=== PATIENT | male | born 1985 | race Caucasian/White ===

== ENCOUNTER 2017-07-04 15:33 | Emergency (ER) | payer MEDICAID ==
[~2017-07-04] VITALS: Ht 1686.6 cm; Wt 82.0 kg
[~2017-07-04 15:33] MED LIST: CHLO25CA10 PO; ESCI10TA PO; RISP2TAB97 PO
[2017-07-04 17:09] LABS: BASOPHILS % (AUTO) 0.2 % (0-1); EOSINOPHILS # (AUTO) 0.3 X10'3 (0-0.9); EOSINOPHILS % (AUTO) 3.8 % (0-6); HEMATOCRIT 46.3 % (42.0-52.0); HEMOGLOBIN 15.6 g/dl (14.0-17.9); LYMPHOCYTES # (AUTO) 2.8 X10'3 (1.1-4.8); LYMPHOCYTES % (AUTO) 34.2 % (21-51); MEAN CORPUSCULAR HEMOGLOBIN 28.8 PG (27.0-31.0); MEAN CORPUSCULAR HGB CONC 33.7 % (33.0-36.5); MEAN CORPUSCULAR VOLUME 85.6 FL (78-98); MEAN PLATELET VOLUME 6.8 FL (7.4-10.4); MONOCYTES # (AUTO) 0.6 X10'3 (0-0.9); MONOCYTES % (AUTO) 7.7 % (2-12); NEUTROPHILS # (AUTO) 4.4 X10'3 (1.8-7.7); NEUTROPHILS % (AUTO) 54.1 % (42-75); PLATELET COUNT 357 X10'3 (140-440); RED BLOOD COUNT 5.41 X10'6 (4.70-6.10); RED CELL DISTRIBUTION WIDTH 14.7 % (11.5-14.5); WHITE BLOOD COUNT 8.2 X10'3 (4.5-11.0)
[2017-07-04 17:23] LABS: ALANINE AMINOTRANSFERASE 14 U/L (12-78); ALKALINE PHOSPHATASE 84 IU/L (46-116); ANION GAP 11 (8-16); ASPARTATE AMINO TRANSFERASE 16 U/L (10-37); BILIRUBIN,TOTAL 0.2 MG/DL (0.1-1.0); BLOOD UREA NITROGEN 11 MG/DL (7-18); BUN/CREATININE RATIO 10.6 (5.4-32.0); CALCIUM 8.3 MG/DL (8.5-10.1); CHLORIDE 106 MMOL/L (99-107); CREATININE 1.04 MG/DL (0.60-1.10); GLUCOSE 87 MG/DL (70-104); POTASSIUM 3.8 MMOL/L (3.5-5.1); SODIUM 145 MMOL/L (135-145); TOTAL PROTEIN 8.1 G/DL (6.4-8.2); eGFR 82 ML/MIN
[2017-07-04 17:44] LABS: ETHANOL 0.387 GM/DL (0.0-0.010)
[2017-07-04] MEDS ORDERED: HYDR-3717 PO (19:30)
[2017-07-04] MEDS ORDERED: MIRT15TA3 PO (19:30)
[2017-07-04] MEDS ORDERED: LURA20TA PO (19:30)
[2017-07-04 20:59] LABS: URINE AMPHETAMINE SCREEN POSITIVE (Neg); URINE BARBITUATE SCREEN NEGATIVE (Neg); URINE BENZODIAZEPINES SCREEN NEGATIVE (Neg); URINE CANNABINOID SCREEN NEGATIVE (Neg); URINE COCAINE SCREEN NEGATIVE (Neg); URINE METHADONE SCREEN NEGATIVE (Neg); URINE OPIATE SCREEN NEGATIVE (Neg); URINE PHENCYCLIDINE SCREEN NEGATIVE (Neg)
[2017-07-05] MEDS ORDERED: lurasidone 20mg tablet PO STA (01:44)
[2017-07-05] MEDS ORDERED: HYDR-3686 PO (07:52)
[2017-07-05] MEDS ORDERED: MIRT45TA6 PO (07:55)
[2017-07-05] MEDS ORDERED: LURA60TA2 PO (07:55)
[2017-07-05] MEDS ORDERED: hydrOXYzine 25 MG tablet PO PRN (08:00)
[2017-07-05] MEDS ORDERED: HYDR-3717 PO (09:02)
[2017-07-05] MEDS ORDERED: hydrOXYzine 10 MG tablet PO PRN (09:05)
[2017-07-05] MEDS ORDERED: proMETHazine 25mg tablet PO ONE (09:30)
[2017-07-05] MEDS ORDERED: LORazepam 1 MG tablet PO ONE (12:15)
[2017-07-05] MEDS ORDERED: mirtazapine 15mg tablet PO SCH (21:00)
[2017-07-05] MEDS ORDERED: lurasidone 60mg tablet PO SCH (21:00)
[2017-07-05] MEDS ORDERED: phenobarbital inj 260 MG in normal saline 100ml IV soln 99 ML IV STA (21:12)
[2017-07-05] MEDS ORDERED: normal saline 1000ML IV soln IVB ONE (21:15)
[2017-07-05] MEDS ORDERED: magnesium oxide 400mg tablet PO ONE (21:15)
[2017-07-05] MEDS ORDERED: thiamine 100mg tablet PO ONE (21:15)
[2017-07-05 22:13] LABS: ETHANOL < 0.010 GM/DL (0.0-0.010); MAGNESIUM 1.8 MG/DL (1.5-2.4)
[2017-07-05] MEDS ORDERED: LORazepam 2 mg/ml vial IV ONE (22:15)
[2017-07-06] MEDS: Melatonin 3mg tablet PO SCH ×2 (03:46→21:07)
[2017-07-06] MEDS ORDERED: traZODone 50mg tablet PO ONE (05:15)
[2017-07-06] MEDS ORDERED: haloperidol 5mg tablet PO ONE (08:35)
[2017-07-06] MEDS ORDERED: LORazepam 1 MG tablet PO ONE (08:35)
[2017-07-06] MEDS: chlordiazePOXIDE 25mg capsule PO SCH ×2 (08:59→21:07)
[2017-07-06] MEDS ORDERED: LURA20TA PO (09:16)
[2017-07-06] MEDS ORDERED: MIRT15TA PO (09:17)
[2017-07-06] MEDS: lurasidone 20mg tablet PO SCH (09:29)
[2017-07-06] MEDS: hydrOXYzine 10 MG tablet PO PRN (12:33)
[2017-07-06] MEDS ORDERED: nicotine 14mg patch - 24hr TD ONE (16:00)
[2017-07-06] MEDS ORDERED: mirtazapine 15mg tablet PO SCH (21:00)
[2017-07-07] MEDS: hydrOXYzine 10 MG tablet PO PRN (08:41)
[2017-07-07] MEDS: lurasidone 20mg tablet PO SCH (08:41)
[2017-07-07 15:10] VITALS: BP 138/98
== END 2017-07-07 15:14 ==
LOC: ER 15:34
DX: F20.9 Schizophrenia, unspecified (principal); F32.9 Major depressive disorder, single episode, unspecified; F15.90 Other stimulant use, unspecified, uncomplicated; R45.851 Suicidal ideations; F14.90 Cocaine use, unspecified, uncomplicated; Z56.0 Unemployment, unspecified; Z79.899 Other long term (current) drug therapy
CPT/HCPCS: 36415; 80053; 80305; 80320; 83735; 84443; 85025; 93005; 96374; 99285; J2060; J2560; J7030; Q0169